=== PATIENT | male | born 1990 | race Caucasian/White ===

== ENCOUNTER 2016-04-25 13:41 | Outpatient (CLI) ==
--- NOTE | 2016-04-25 15:04 | US ---
EXAM: ULTRASOUND LOWER EXTREMITY VENOUS DOPPLER EXAM HISTORY: Leg swelling bilaterally. FINDDINGS: Bilateral lower extremity venous Doppler exam. Real time nieves-scale, Doppler spectral an alysis and color-flow Doppler imaging performed. The veins targeted for evaluation include the comm on femoral, greater saphenous, profundus, femoral, popliteal, peroneal, anterior tibial and posterio r tibial. The evaluated veins demonstrated normal spontaneous flow and compression without evidenc e of thrombosis. IMPRESSION: No venous thrombosis identified within the areas evaluated.
== END 2016-04-25 13:42 | disposition home or self-care (01) ==
LOC: RAD 13:41
PROVIDERS: ATTEND Family Medicine
DX: M79.89 Other specified soft tissue disorders (principal)